=== PATIENT | female | born 1955 | race Caucasian/White ===

== ENCOUNTER 2020-08-16 20:02 | Observation (INO) | payer MEDICARE, OTHER ==
[~2020-08-16] VITALS: Ht 162.6 cm; Wt 121.1 kg
[2020-08-16 23:31] LABS: HEMOGLOBIN 16.1 gm/dl (12.3-15.3); RED BLOOD COUNT 4.82 M/UL (4.00-5.10); WHITE BLOOD COUNT 12.4 K/UL (4.5-11.0)
[2020-08-16 23:59] LABS: BUN/CREATININE RATIO 10 (0-10)
[2020-08-17] MEDS ORDERED: XANAX0.5 MG PO (07:21)
[2020-08-17] MEDS ORDERED: VENTOLIN HFA 66.7 GM INH (07:21)
[2020-08-17] MEDS ORDERED: HYDROCODON-ACE1 EAC6 PO (07:22)
[2020-08-17] MEDS ORDERED: ADMELOG100 UNIT/1 SQ (07:23)
[2020-08-17] MEDS ORDERED: LEVOTHYROXINE200 MC2 PO (07:24)
[2020-08-17] MEDS ORDERED: GABAPENTIN800 MG PO (07:24)
[2020-08-17] MEDS ORDERED: LEVEMIR100 UNIT/1 SQ (07:25)
[2020-08-17] MEDS ORDERED: LISINOPRIL40 MG PO (07:25)
[2020-08-18 05:54] LABS: RED BLOOD COUNT 4.35 M/UL (4.00-5.10)
[2020-08-18 05:58] LABS: WHITE BLOOD COUNT 6.9 K/UL (4.5-11.0)
[2020-08-18 06:19] LABS: BUN/CREATININE RATIO 14 (0-10)
[2020-08-19 06:32] LABS: BUN/CREATININE RATIO 15 (0-10)
[2020-08-19] MEDS ORDERED: CEFUROXIME250 MG PO (11:49)
--- NOTE | 2020-08-19 18:18 | NUR ---
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
== END 2020-08-19 18:13 | disposition home or self-care (01) ==
LOC: ER1 20:02 → ZEROF 08-17 04:54 → M/S 08-17 04:54
PROVIDERS: Internal Medicine Infectious Disease; Physician Assistant; Physician Assistant Medical; ADMIT Internal Medicine
DX: E11.40 Type 2 diabetes mellitus with diabetic neuropathy, unspecified (principal); E11.65 Type 2 diabetes mellitus with hyperglycemia; N30.90 Cystitis, unspecified without hematuria; D72.829 Elevated white blood cell count, unspecified; I10 Essential (primary) hypertension; E03.9 Hypothyroidism, unspecified; F17.210 Nicotine dependence, cigarettes, uncomplicated; E87.6 Hypokalemia; Z83.3 Family history of diabetes mellitus; Z90.49 Acquired absence of other specified parts of digestive tract; B96.20 Unspecified Escherichia coli [E. coli] as the cause of diseases classified elsewhere; E66.01 Morbid (severe) obesity due to excess calories; Z20.822 Contact with and (suspected) exposure to COVID-19; Z68.41 Body mass index [BMI] 40.0-44.9, adult; Z79.899 Other long term (current) drug therapy; Z79.4 Long term (current) use of insulin
CPT/HCPCS: 36415; 36600; 70450; 71045; 72132; 80048; 80053; 81001; 82140; 82550; 82553; 82803; 82962; 83036; 83735; 83874; 84439; 84443; 84484; 85025; 85027; 87077; 87086; 87186; 96365; 96372; 96375; 96376; 97110-GP-CQ; 97116-GP-CQ; 97163; 97165; 99285; G0378; J0696; J1650; Q9967; U0002